=== PATIENT | male | born 1990 | race Caucasian/White ===

== ENCOUNTER 2017-03-31 09:14 | Outpatient (CLI) | payer OTHER ==
[2017-03-31 09:40] LABS: MEAN CORPUSCULAR HEMOGLOBIN 31.5 pg (28.0-34.0); MEAN CORPUSCULAR VOLUME 88.2 fl (80.0-100.0)
--- NOTE | 2017-03-31 09:42 | Diagnostic Imaging Report ---
[facility] [address] [facility] [address] [address] Report Submission Date: Mar 31, 2017 9:39:06 AM CDT Patient Study Name: DAVID CLOUD Date: Mar 31, 2017 9:16:26 AM CDT Modality Type: CR Gender: M Description: ABDOMEN : 89 Institution: [facility] Physician: EKATERINA SAHNI - OP 2 views of the abdomen History: LOWER ABDOMINAL PAIN SINCE EARLY THIS MORNING Findings: No comparison studies Nonobstructive bowel gas pattern. Stool is noted throughout the colon. No air fluid levels or obvious free intraperitoneal air. No acute osseous pathology Impression: Nonobstructive bowel gas pattern. Electronically signed on Mar 31, 2017 9:39:06 AM CDT by: Marycarmen BONILLA
[2017-03-31 09:54] LABS: MONOCYTES % 3 % (0-11); SEGMENTED NEUTROPHILS % 91 % (39-79)
[2017-03-31 10:07] LABS: eGFR (African) > 60; eGFR (Non-African) > 60
== END 2017-03-31 09:15 ==
LOC: LAB 09:14
PROVIDERS: ATTEND Family Medicine
DX: R10.32 Left lower quadrant pain (principal)
CPT/HCPCS: 36415; 74000; 80053; 85025

== ENCOUNTER 2017-04-03 11:42 | Outpatient (CLI) | payer OTHER ==
--- NOTE | 2017-04-03 15:44 | Diagnostic Imaging Report ---
KEVIN NARVAEZ [facility] [address] [facility] [address] [address] Report Submission Date: Apr 03, 2017 12:24:51 PM CDT Patient Study Name: DAVID CLOUD Date: Apr 03, 2017 11:55:18 AM CDT Modality Type: US Gender: M Description: US ABD LIMITED : 89 Institution: [facility] Physician: KEVIN NARVAEZ Examination: Ultrasound abdomen History: Right lower quadrant discomfort Findings: Sonographic evaluation right lower quadrant region demonstrates peristalsing bowel. No evidence for tubular structure or inflammatory changes by ultrasound sensitivity. Impression: No suspicious bowel structure. No ultrasound findings suspicious for appendicitis. Electronically signed on Apr 03, 2017 12:24:51 PM CDT by: Sawyer BONILLA
== END 2017-04-03 11:43 ==
LOC: RAD 11:42
PROVIDERS: ATTEND Physician Assistant
DX: R10.31 Right lower quadrant pain (principal); R10.829 Rebound abdominal tenderness, unspecified site
CPT/HCPCS: 76705